=== PATIENT | female | born 1990 | race Caucasian/White ===

== ENCOUNTER 2020-11-26 19:52 | Emergency (ER) | payer BC ==
[2020-11-26 20:07] VITALS: BP 109/62; PULSE 79; RESP 20; TEMP 98
[2020-11-26] MEDS ORDERED: ACETAMINOPHEN TAB 325 MG TAB PO STA (20:46)
[2020-11-26] MEDS ORDERED: LIDOCAINE 1% INJ 10MG/ML (20 ML MDV) SQ ONE (20:46)
--- NOTE | 2020-11-26 20:51 | XR ---
EXAMINATION TYPE: XR hand complete LT DATE OF EXAM: 11/26/2020 COMPARISON: NONE HISTORY: Laceration. Pain. TECHNIQUE: 3 views FINDINGS: Metacarpals are intact. I see no fracture nor dislocation. Joint spaces are normal. There a re no erosions. IMPRESSION: Negative left hand exam. No fracture.
--- NOTE | 2020-11-26 20:56 | ED ---
Wound/Laceration HPI - General Chief Complaint: Wound/Laceration Stated Complaint: L Hand Lac, 31 wks preg Time Seen by Provider: 11/26/20 20:38 Source: patient Mode of arrival: ambulatory Limitations: no limitations - History of Present Illness Initial Comments: Patient is a 30-year-old female, currently 31 weeks , presenting to the emergency Department with complaints of a puncture wound to her left hand. Patient states she is attempting to remove the seed out of an avocado when the knife slipped and cut her left palm. Patient states she is complaining of numbness in her fourth and fifth digits as well as shooting pains through the digits as well. She is on aspirin secondary to her , no other blood thinners. She did receive her TDap today, so that is up-to-date. Bleeding is controlled with bandage. She has no further complaints at this time. - Related Data Allergies Allergy/AdvReac Type Severity Reaction Status Date / Time codeine Allergy Nausea & Verified 11/26/20 20:07 Vomiting Review of Systems ROS Statement: Those systems with pertinent positive or pertinent negative responses have been documented in the HPI. ROS Other: All systems not noted in ROS Statement are negative. Past Medical History Past Medical History: No Reported History History of Any Multi-Drug Resistant Organisms: None Reported Past Surgical History: No Surgical Hx Reported Past Psychological History: No Psychological Hx Reported Smoking Status: Former smoker Past Alcohol Use History: None Reported Past Drug Use History: None Reported General Exam - General Exam Comments Initial Comments: GENERAL: Patient is well-developed and well-nourished. Patient is nontoxic and in no acute distress. HEAD: Atraumatic, normocephalic. EYES: Pupils equal round and reactive to light, extraocular movements intact, sclera anicteric, conjunctiva are normal. Eyelids were unremarkable. ENT: Nares patent, oropharynx clear without exudates. Moist mucous membranes. NECK: Normal range of motion, supple without lymphadenopathy or JVD. LUNGS: Unlabored respirations. Breath sounds clear to auscultation bilaterally and equal. No wheezes rales or rhonchi. HEART: Regular rate and rhythm without murmurs, rubs or gallops. ABDOMEN: Soft, nontender, normoactive bowel sounds. No guarding, no rebound. No masses appreciated. : Deferred MUSCULOSKELETAL: Normal extremities with adequate strength and normal range of motion, no pitting or edema. No clubbing or cyanosis. Patient does have full range of motion of all left fingers and thumb, normal opposition. She does have "different sensation in her fourth digit" the and the rest of her digits. She has some tingling in the fourth digit as well. NEUROLOGICAL: Patient is alert and oriented x 3. Motor and sensory are also intact. Cranial nerves II through XII grossly intact. Symmetrical smile. Normal speech, normal gait. PSYCH: Normal mood, normal affect. SKIN: Warm, Dry, normal turgor, no rashes. Patient has a 1 cm puncture wound to the left palm, over the fourth metacarpal. Bleeding is controlled. Limitations: no limitations Course Vital Signs 11/26/20 20:03 Temperature 98.0 F Pulse Rate 79 Respiratory 20 Rate Blood Pressure 109/62 O2 Sat by Pulse 100 Oximetry Procedures - Laceration Laceration #1 Consent Obtained: verbal consent Indication: laceration Site: hand (Left hand, palmar aspect) Size (cm): 1 Description: linear Depth: simple, single layer Anesthetic Used: lidocaine 1% Anesthesia Technique: local infiltration Amount (mls): 2 Pre-repair: irrigated extensively Type of Sutures: nylon Size of Sutures: 5-0 Number of Sutures: 2 Technique: simple, interrupted Patient Tolerated Procedure: well Medical Decision Making - Medical Decision Making Patient is a 30-year-old female, currently 31 weeks , presenting with a 1 cm laceration to the left hand, palmar aspect. Her knife slipped when she was trying to get out the seed of a avocado. X-ray of her left hand reveals no acute process, no fractures dislocations. She is having some numbness, tingling of her fourth digit. She does have full range of motion of all fingers, she does have feeling, it just "feels different." She is up-to-date with her tetanus vaccine. The wound was cleaned, closed with 2 sutures. She tolerated procedure well. I will give her referral to a hand surgeon for follow-up. Stitches need to removed in 7-10 days. Patient is stable for discharge and she is in agreement with this plan of care. Case discussed with Dr. Pelayo. Disposition Clinical Impression: Laceration of left hand Disposition: HOME SELF-CARE Condition: Stable Instructions (If sedation given, give patient instructions): Care For Your Stitches (ED) Additional Instructions: Please return to the Emergency Department if symptoms worsen or any other concerns. Keep left hand clean and dry. Keep covered while working or cooking. Stitches need to be removed in 7-10 days as discussed. I recommend following up with the hand surgeon as discussed. Is patient prescribed a controlled substance at d/c from ED?: No Referrals: Donovan Smith DO [Primary Care Provider] - 1-2 days Mohamud Vogt MD [STAFF PHYSICIAN] - 1-2 days Time of Disposition: 21:25
== END 2020-11-26 21:36 | disposition home or self-care (01) ==
LOC: EC 19:52
DX: O9A.213 Injury, poisoning and certain other consequences of external causes complicating pregnancy, third trimester (principal); S61.412A Laceration without foreign body of left hand, initial encounter; W26.0XXA Contact with knife, initial encounter; Y93.89 Activity, other specified; Z3A.31 31 weeks gestation of pregnancy; Z87.891 Personal history of nicotine dependence
CPT/HCPCS: 73130; 99283; 12001; 96372; J2001

== ENCOUNTER 2021-01-23 06:00 | Inpatient (IN) | payer BC ==
[2021-01-23] MEDS: LACTATED RINGERS 1,000 ML IV SCH ×3 (06:00→10:54)
[2021-01-23] MEDS ORDERED: TERBUTALINE 1 MG/ML VIAL SQ PRN (06:13)
[2021-01-23] MEDS ORDERED: METHYLERGONOVINE 0.2 MG/ML 1 ML AMP IM PRN (06:13)
[2021-01-23] MEDS ORDERED: LIDOCAINE 0.5% (PF) 5 MG/ML (50 ML SDV) SQ PRN (06:13)
[2021-01-23] MEDS ORDERED: CARBOPROST TROMETHAMINE 250 MCG/ML 1 ML AMP IM PRN (06:13)
[2021-01-23] MEDS ORDERED: OXYTOCIN 10 UNIT/ML 1 ML VIAL IM PRN (06:13)
[2021-01-23] MEDS ORDERED: OXYTOCIN 30 UNITS/500 ML NS 30 UNIT in SALINE 1 500ML.BAG IV SCH (06:15)
[2021-01-23 06:23] LABS: Basophils % (A) 0 %; Eosinophils # (A) 0.1 k/uL (0-0.7); Eosinophils % (A) 1 %; HCT 32.6 % (34.0-46.0); Lymphocytes # (A) 1.9 k/uL (1.0-4.8); Lymphocytes % (A) 22 %; MCH 29.2 pg (25.0-35.0); MCHC 33.6 g/dL (31.0-37.0); MCV 86.9 fL (80.0-100.0); Mean Platelet Volume 9.7; Monocytes # (A) 0.4 k/uL (0-1.0); Monocytes % (A) 5 %; Neutrophils # (A) 6.1 k/uL (1.3-7.7); Neutrophils % (A) 70 %; Platelet Count 186 k/uL (150-450); RBC 3.75 m/uL (3.80-5.40); RDW 12.4 % (11.5-15.5); WBC 8.7 k/uL (3.8-10.6)
--- NOTE | 2021-01-23 07:54 | P.HPOB ---
History of Present Illness H&P Date: 01/23/21 Chief Complaint: Here for induction of labor, uterine contractions noted. This is a 30-year-old female 2 para 1001 [facility] 01/25/2021 at 39-5/7 weeks' gestation. Patient presents for induction, but having mild irregular contractions. She denies fluid leakage or vaginal bleeding. Fetus is been active throughout the . Obstetric history is significant for blood type B positive, rubella status immune. VDRL testing, urine culture, hepatitis B surface antigen, HIV testing, gonorrhea and chlamydia cultures, group B strep cultures all negative. One-hour Glucola 107. Past medical history is negative. Past surgical history is negative. Current medications vitamins daily. ALLERGIES codeine to which reports an unknown reaction. Family history is significant for hypertension, diabetes, breast cancer. Obstetric history normal spontaneous vaginal delivery in 2015 at 41 weeks gestation, uncomplicated. Social history patient is , her is present. She is a former tobacco smoker, denies alcohol or drug use. On exam patient is 5 foot 6 inches, 180 pounds, blood pressure 120/61, pulse 83, respirations 16, temperature 96.8. The general physical exam is within normal limits. Chest is clear in all bass. Extremities reveal no edema. Cervix is 5 cm dilated, 70% effaced, -1 station, vertex presentation. Irregular mild uter ine contractions are noted. heart rate is consistent with reactive NST. Artificial amniorrhexis reveals clear fluid. Impression: 39-5/7 weeks intrauterine , here for elective induction of labor with favorable multiparous cervix, all signs reassuring. Plan: Oxytocin per hospital protocol. Close maternal and surveillance. Anticipate normal spontaneous vaginal delivery. Analgesic options reviewed with the patient. Review of Systems Constitutional: Reports as per HPI Past Medical History Past Medical History: No Reported History Additional Past Medical History / Comment(s): thrombophlebitis bilat legs during pregnacy and has resolved History of Any Multi-Drug Resistant Organisms: None Reported Past Surgical History: No Surgical Hx Reported Past Anesthesia/Blood Transfusion Reactions: No Reported Reaction Past Psychological History: No Psychological Hx Reported Smoking Status: Former smoker Past Alcohol Use History: None Reported Additional Past Alcohol Use History / Comment(s): stopped smoking in 2014 Past Drug Use History: None Reported Medications and Allergies Home Medications Medication Instructions Recorded Confirmed Type Pnv No.95/Ferrous Fum/Folic AC 1 tab PO DAILY 01/23/21 01/23/21 History [ Multivitamin Tablet] Allergies Allergy/AdvReac Type Severity Reaction Status Date / Time codeine Allergy Nausea & Verified 11/26/20 20:07 Vomiting Exam Vital Signs Temp Pulse Resp BP Pulse Ox 01/23/21 06:11 96.8 F L 83 16 120/61 99 Intake and Output 01/22/21 01/23/21 01/23/21 22:59 06:59 14:59 Other: Weight 81.647 kg See exam under HPI please Results Result Diagrams: 01/23/21 06:05 Abnormal Lab Results - Last 24 Hours (Table) 01/23/21 Range/Units 06:05 RBC 3.75 L (3.80-5.40) m/uL Hgb 11.0 L (11.4-16.0) gm/dL Hct 32.6 L (34.0-46.0) % Assessment and Plan Assessment: 39-5/7 weeks intrauterine , here for induction of labor with favorable multiparous cervix, all signs reassuring. Plan: Continue close maternal and surveillance. Oxytocin per hospital protocol. Analgesic options reviewed. Anticipate normal spontaneous vaginal delivery. Time with Patient: Less than 30
[2021-01-23] MEDS ORDERED: fentaNYL (PF) 50 MCG/ML 5 ML AMP ONE (09:33)
[2021-01-23] MEDS ORDERED: ROPIVACAINE 5MG/ML 20ML VIAL ONE (09:33)
[2021-01-23] MEDS ORDERED: SODIUM CHLORIDE 0.9% 100 ML BAG ONE (09:33)
[2021-01-23] MEDS ORDERED: ROPIVACAINE 100 MG, fentaNYL (PF). 200 MCG in SODIUM CHLORIDE 0.9% 76 ML EPIDURAL ONE (10:18)
[2021-01-23] MEDS ORDERED: LANOLIN CREAM 5 GM TUBE TOPICAL PRN (13:09)
[2021-01-23] MEDS ORDERED: diphenhydrAMINE ELIXIR 25 MG/10 ML CUP PO PRN (13:09)
[2021-01-23] MEDS ORDERED: diphenhydrAMINE 25 MG CAP PO PRN (13:09)
[2021-01-23] MEDS ORDERED: BENZOCAINE/MENTHOL SPRAY 1 GM/SPRAY AEROSOL TOPICAL PRN (13:09)
[2021-01-23] MEDS ORDERED: diphenhydrAMINE 50 MG CAP PO PRN (13:09)
[2021-01-23] MEDS ORDERED: SIMETHICONE 80 MG CHEWABLE PO PRN (13:09)
[2021-01-23] MEDS ORDERED: HYDROCORTISONE 2.5% RECTAL CREAM 30 GM TUBE RECTAL PRN (13:09)
[2021-01-23] MEDS ORDERED: ZOLPIDEM 5 MG TAB PO PRN (13:09)
[2021-01-23] MEDS ORDERED: diphenhydrAMINE 50 MG/ML 1 ML VIAL IVP PRN ×2 (13:09)
--- NOTE | 2021-01-23 13:09 | P.PROBDLV ---
Vaginal Delivery Note - . Vaginal Delivery Note: This is a 30-year-old white female 2 para 1001 [facility] 01/25/2021 who presents at 39-5/7 weeks' gestation. Yesterday in the office patient noted decreased movement. NST was reactive, she was noted to be 4-5 cm dilated. The decision was made to proceed with induction of labor. She presented this morning with regular mild uterine contractions in early labor. Blood type B positive, rubella status immune, group B strep cultures negative. Please see my dictated history and physical for details. Artificial amniorrhexis revealed clear fluid. Oxytocin was started and titrated per hospital protocol. Epidural was placed per her request. She became comp letely dilated at 1-20 hours and began the second stage of labor at that time. Perineal body was prepped and draped in usual sterile fashion. With excellent maternal expulsive efforts 's head delivered occiput anterior and restituted accordingly. There was no nuchal cord noted. The left or anterior shoulder was delivered from underneath the pubic symphysis at which time the oropharynx, nasopharynx, and external nares were all bulb suctioned on the perineal body. Patient was officially delivered of a liveborn male infant at 1227 hours. The umbilical cord was doubly clamped and ligated, baby was handed to waiting nurses for evaluation where scores of 8 and 9 at one and 5 minutes respectively were given. He weighed 7 lbs. 14 oz. or 3540 g. Placenta delivered spontaneously, it was inspected and noted to be intact with trivascular cord at 1232 hours. At this time the perineal body was redraped. Careful inspection of the cervix, vagina, perineum, periurethral, and perirectal areas revealed a very small first-degree midline laceration at 6:00 easily reapproximated with a single [id number] suture of repeat. Fundus is firm and in the midline, symmetric and 18 week size. Patient and her are allowed to begin the bonding experience in the LDR. They are declining circumcision further infant son.
[2021-01-23] MEDS ORDERED: SENNA LEAF EXTRACT SYRUP 528 MG/15 ML CUP PO SCH (20:00)
[2021-01-23] MEDS: IBUPROFEN 600 MG TAB PO SCH (20:25)
[2021-01-23] MEDS: SENNOSIDES-DOCUSATE SODIUM 1 EACH TAB PO SCH (20:25)
[2021-01-23 21:35] VITALS: RESP 16
[2021-01-24] MEDS: ACETAMINOPHEN TAB 325 MG TAB PO PRN ×3 (00:51→16:14)
[2021-01-24] MEDS: IBUPROFEN 600 MG TAB PO SCH ×4 (01:09→12:19)
[2021-01-24] MEDS: SENNOSIDES-DOCUSATE SODIUM 1 EACH TAB PO SCH (07:52)
--- NOTE | 2021-01-24 08:03 | P.DS ---
Providers Date of admission: 01/23/21 06:00 Expected date of discharge: 01/24/21 Attending physician: Nicole Veras Primary care physician: Stated None Hospital Course: This is a 30-year-old female 2 para 1001 [facility] 01/25/2021 at 39-5/7 weeks' gestation. Patient presented yesterday for induction with favorable multiparous cervix and decreased movement. Group B strep cultures negative, rubella status immune, blood type B+. Please see dictated history and physical for details. Patient went on to deliver vaginally a liveborn male infant with scores of 8 and 9 at one and 5 minutes respectively. He weighed 3540 g or 7 lbs. 14 oz. There was an estimated blood loss of 150 mL recorded, a small first-degree perineal laceration repaired with a single [id number] suture. Please see dictated delivery note for details. This morning the patient is doing well. She is voiding, ambulating, passing flatus without difficulty. Vital signs are stable and she is afebrile. Fundus is firm and in the midline, symmetric and 18 week size. [place] is doing well. We have discussed options for contraception and patient will discuss this further in the office. She is discharged home today in very good condition. She will follow-up with her primary second hand in 6 weeks. She is reminded no intercourse, tampons or douching. She will use [id number] Advil or Aleve, or Motrin as needed for pain. I've asked her to call with any fevers shakes or chills, foul smelling or copious lochia, with the passage of large blood clots, with any pain not alleviated by [id number] products, or indeed with any concerns. Assessment: Doing well first day Patient Condition at Discharge: Good Plan - Discharge Summary Discharge Rx Participant: No New Discharge Prescriptions: No Action Pnv No.95/Ferrous Fum/Folic AC [ Multivitamin Tablet] 1 tab PO DAILY Discharge Medication List Pnv No.95/Ferrous Fum/Folic AC [ Multivitamin Tablet] 1 tab PO DAILY 01/23/21 [History] Follow up Appointment(s)/Referral(s): Magdalene Miller DO [Doctor of Osteopathic Medicine] - 6 Weeks Discharge Disposition: HOME SELF-CARE
[2021-01-24 08:20] VITALS: BP 114/76; PULSE 70; TEMP 98.2
== END 2021-01-24 16:58 | disposition home or self-care (01) | DRG 807 ==
LOC: 4FBP 06:00
PROVIDERS: ADMIT Obstetrics & Gynecology; ATTEND Obstetrics & Gynecology
PROC: 0HQ9XZZ Repair Perineum Skin, External Approach (ICD-10-PCS; principal; 2021-01-23)
PROC: 10E0XZZ Delivery of Products of Conception, External Approach (ICD-10-PCS; principal; 2021-01-23)
PROC: 3E033VJ Introduction of Other Hormone into Peripheral Vein, Percutaneous Approach (ICD-10-PCS; principal; 2021-01-23)
DX: O70.0 First degree perineal laceration during delivery (principal); Z37.0 Single live birth; O36.8130 Decreased fetal movements, third trimester, not applicable or unspecified; Z3A.39 39 weeks gestation of pregnancy; Z83.3 Family history of diabetes mellitus; Z82.49 Family history of ischemic heart disease and other diseases of the circulatory system; Z86.72 Personal history of thrombophlebitis; Z87.891 Personal history of nicotine dependence; Z88.5 Allergy status to narcotic agent
CPT/HCPCS: 85025; 86850; 86900; 86901

== ENCOUNTER → 2022-06-16 | Outpatient (CLI) | payer BC ==
--- NOTE | 2022-06-16 14:22 | CT ---
EXAMINATION TYPE: CT brain w con DATE OF EXAM: 06/16/2022 COMPARISON: None. HISTORY: Dizziness, Blurred Vison, Tongue numbness CT DLP: 1064.10 mGycm. Automated Exposure Control for Dose Reduction was Utilized. TECHNIQUE: CT scan of the head is performed with IV Contrast, patient injected with 70 mL of Isovue 300. FINDINGS: The ventricles and sulci are within normal limits in size. [place]-white matter differentiatio n is maintained. Postcontrast images show no suspicious enhancing intraparenchymal mass. The globes a re intact and the visualized sinuses are clear. Nasal septum is deviated to left of midline IMPRESSION: No suspicious findings seen to account for patient's symptoms.
== END | disposition home or self-care (01) ==
LOC: RADCTMAIN 13:15
PROVIDERS: ATTEND Family Medicine
DX: K13.29 Other disturbances of oral epithelium, including tongue (principal); R42 Dizziness and giddiness; R51.0 Headache with orthostatic component, not elsewhere classified; R53.83 Other fatigue
CPT/HCPCS: 70460; Q9967